=== PATIENT | female | born 1965 | race Caucasian/White ===

== ENCOUNTER → 2018-09-29 | Outpatient (CLI) | payer OTHER | LOC: BC 06:00 | DX: Z12.31 Encounter for screening mammogram for malignant neoplasm of breast (principal) ==

== ENCOUNTER → 2019-10-10 | Outpatient (CLI) | payer OTHER | LOC: RAD 02:56 | DX: Z12.31 Encounter for screening mammogram for malignant neoplasm of breast (principal) ==

== ENCOUNTER → 2020-10-28 | Outpatient (CLI) | payer OTHER | LOC: RAD 14:00 | PROVIDERS: ATTEND Family Medicine | DX: Z12.31 Encounter for screening mammogram for malignant neoplasm of breast (principal) ==

== ENCOUNTER → 2021-06-05 | Outpatient (CLI) | payer OTHER ==
--- NOTE | 2021-06-05 12:29 | 2DMMODE ---
[facility] [place] [address] [place] [address] 2 D/M-MODE ECHOCARDIOGRAM Name: ANDRE LEE Room #: REG [facility]#: [id number] Admission: 06/05/21 Attend Phys: Geovany Lewis MD Discharge: Date of : 61 Report #: [id number] THIS REPORT FOR: cc: Syeda Winters MD, Laurie Dawn MD Santiago, Patrick MD [facility] ~ APPROVED REPORT Study performed: 06/05/2021 10:56:14 EXAM: Comprehensive 2D, Doppler, and color-flow Echocardiogram Patient Location: Out-Patient Status: routine BSA: 1.60 HR: 53 bpm BP: 110/70 mmHg Rhythm: NSR Other Information Study Quality: Excellent Indications Palpitations. 2D Dimensions RVDd: 32.87 mm IVSd: 7.99 (7-11mm) LVOT Diam: 19.74 (18-24mm) LVDd: 46.95 mm PWd: 8.43 (7-11mm) LVDs: 34.21 (25-40mm) Left Atrium: 30.64 (27-40mm) Aortic Root: 28.52 mm Volumes Left Atrial Volume (Systole) Single Plane 4CH: 34.62 mL Single Plane 2CH: 41.11 mL LA ESV Index: 26.00 mL/m2 Aortic Valve AoV Peak Himanshu.: 1.40 m/s AO Peak Gr.: 7.80 mmHg LVOT Max P.17 mmHg LVOT Max V: 1.14 m/s KASSIE Vmax: 2.[address] [facility] [address] [place] [address] 2 D/M-MODE ECHOCARDIOGRAM Name: JESUSANDRE Room #: REG [facility]#: [id number] Admission: 06/05/21 Attend Phys: Geovany Lewis, Discharge: Date of : 61 Report #: [id number] Mitral Valve E/A Ratio: 1.2 MV Decel. Time: 209.64 ms MV E Max Himanshu.: 0.71 m/s MV A Himanshu.: 0.58 m/s MV PHT: 60.80 ms IVRT: 87.66 ms Pulmonary Valve PV Peak Himanshu.: 0.85 m/s PV Peak Gr.: 2.91 mmHg Pulmonary Vein P Vein S: 0.56 m/s P Vein D: 0.48 m/s P Vein S/D Ratio: 1.17 Tricuspid Valve TR Peak Himanshu.: 2.22 m/s RAP Estimate: 5.00 mmHg TR Peak Gr.: 20.00 mmHg PA Pressure: 25.00 mmHg Left Ventricle The left ventricle is normal size. There is normal LV segmental wall motion. There is normal left ventricular wall thickness. The left ventricular systolic function is normal. LVEF is 55%. The left ventricular diastolic function is normal. Right Ventricle The right ventricle is normal size. The right ventricular systolic function is normal. Atria The left atrium size is normal. The right atrium size is normal. Aortic Valve The aortic valve is normal in structure. No aortic regurgitation is present. There is no aortic valvular stenosis. Mitral Valve The mitral valve is normal in structure. Trace mitral regurgitation. No evidence of mitral valve stenosis. Tricuspid Valve The tricuspid valve is normal in structure. Trace tricuspid [facility] [address] [place] [address] 2 D/M-MODE ECHOCARDIOGRAM Name: JESUSANDRE Room #: [facility]#: [id number] Admission: 06/05/21 Attend Phys: Geovany Lewis, Discharge: Date of : 61 Report #: [id number] regurgitation. Estimated PAP is 25mmHg. Pulmonic Valve The pulmonary valve is normal in structure. Trace pulmonic regurgitation. Great Vessels The aortic root is normal in size. IVC is normal in size and collapses >50% with inspiration. Pericardium There is no pericardial effusion. <Conclusion> Normal left ventricular size/wall thickness Ejection fraction 55% Grade 1 diastolic dysfunction Normal right ventricular size/function Normal atrial size Color-flow Doppler study was performed of the aortic/mitral/tricuspid/pulmonary valve Normal aortic/mitral valve structure and function Trace tricuspid valve insufficiency Pulmonary systolic pressure estimated 25 mmHg No pericardial effusion Normal aortic root size. <ELECTRONICALLY SIGNED> By: Dante Cherry MD, FACC 06/05/21 1229 1229 1229 Dante Cherry MD, FAC /INF
== END ==
LOC: CV 11:25
PROVIDERS: ATTEND Internal Medicine Cardiovascular Disease
DX: I51.89 Other ill-defined heart diseases (principal); R00.2 Palpitations

== ENCOUNTER → 2021-12-07 | Outpatient (CLI) | payer OTHER | LOC: BC 09:00 | DX: Z12.31 Encounter for screening mammogram for malignant neoplasm of breast (principal) ==